=== PATIENT | male | born 1995 | race Caucasian/White ===

== ENCOUNTER 2018-08-05 09:00 | Emergency (ER) | payer SELFPAY ==
[2018-08-05 09:04] VITALS: BP 153/94; PULSE 85; RESP 16; TEMP 36.7; O2SAT 97
--- NOTE | 2018-08-05 09:41 | ED.GENADUL_ITS ---
Discharge Plan Disposition Patient Disposition: HOME Condition: Improving Discharge Details Chief Complaint: EyeProblem Clinical Impression: Nausea vomiting and diarrhea, Dehydration, Dizziness Primary Care Provider: None,None ED Provider: Marysol Stroud Home Meds and New Rx's Prescriptions: New prochlorperazine maleate [Compazine] 10 mg tablet 10 mg PO TID PRN (Reason: nausea and vomiting) Qty: 7 RF: 0 Continued omeprazole 20 mg Tablet,Delayed Release (Dr/Ec) PO DAILY RF: 0 Discharge Instructions Instructions: Acute Nausea and Vomiting (ED), Acute Diarrhea (ED), Dizziness (ED) Additional Instructions: Take the Compazine as needed and directed for any nausea or vomiting. Drink plenty of fluids and get plenty of rest. You will receive a call from care management regarding a follow-up appointment with a primary care doctor. Return immediately to the emergency department with any worsening or new concerning symptoms. Stand Alone Forms: Work Release Discharge Data Discharge Date/Time-TO BE ENTERED AT DEPARTURE: 08/05/18 13:49 Discharge Physician: Marysol Stroud Medical Decision Making 23-year-old male with no past medical history who presents with dizziness and vision changes this morning after awakening, more pronounced while driving this morning. Symptoms somewhat improved at present. Visual acuity on arrival OD 20/30, OS 20/20, OU 20/20. Vitals within normal limits. Upon my evaluation, patient is texting on phone and appears in no acute distress. He also states that for the past 3 months he has been coughing with yellow sputum and he is a smoker. He also states he drinks at least 2 alcoholic drinks and smokes marijuana daily and has been vomiting up to 6 times daily every day for the past week. Also admits to intermittent diarrhea. Discussed with patient that his differential diagnosis can include dehydration, gastroenteritis, electrolyte abnormality, cyclic vomiting syndrome, pneumonia. As he is young with no past medical history, do not suspect acute neurological process, but based on his symptom presentation, a CT head, screening labs, and chest x-ray ordered on arrival. Labs and imaging reviewed and unremarkable. Normal white blood cell count. Normal electrolytes. Normal liver function and lipase. Chest x-ray and CT head negative. 1320 --patient states he feels better and is requesting to go home. He is texting on his phone. He is requesting a work note for the next [address] head negative, will give a dose of Toradol. Patient thinks he was given Zofran by his PCP for this previous vomiting but it is not been helping. Will send home with a prescription for Compazine. Discussed with patient that his work-up is reassuring and since his symptoms are improved and he is hemodynamically stable, no fever or meningeal signs so doubt meningitis, does not appear consistent with an acute neurological process requiring an LP, but if his condition acutely worsens or changes, to return immediately to the emergency department. Nurse did not see order and hence did not give dose of toradol prior to dc. Pt had no acute complaints per nurse. Medical Records Medical records reviewed: Yes I reviewed the patient's medical records. Imaging Data Radiologic Study: Radiologist's impression: NONCONTRAST CRANIAL CT: A noncontrast cranial CT was performed. There is slight mucoperiosteal thickening of maxillary antra and opacification of a couple of ethmoid air cells on the left. Otherwise the paranasal sinuses and mastoid air cells are well aerated. Orbital structures and temporal bone structures appear intact. Ventricular system is normal in appearance. No evidence of acute intracranial hemorrhage, mass effect or midline shift. IMPRESSION: No evidence of acute process. Radiologic Study #2: Radiologist's impression: PA AND LATERAL CHEST: The heart is normal in size. The lungs are clear. The mediastinal structures and pleura appear intact. CONCLUSION: Normal chest. Lab Data Lab results reviewed: Yes I reviewed the patient's lab results. Laboratory Tests Range/Units 08/05/18 08/05/18 08/05/18 10:45 10:45 10:45 WBC (4.4-10.8) k/cumm 9.28 RBC (4.50-6.00) m/cumm 5.52 Hgb (13.5-17.5) g/dL 16.4 Hct (40.0-50.0) % 46.8 MCV (80-95) fL 84.8 MCH (27.0-33.0) pg 29.7 MCHC (32.0-36.0) g/dL 35.0 RDW (11.8-14.1) % 12.2 Plt Count (130-400) x1000/uL 276 MPV (8.0-11.0) fL 10.4 Immature Gran % 0.3 Neutrophils % 73.6 Lymphocytes % 15.5 Monocytes % 8.7 Eosinophils % 1.5 Basophils % 0.4 Absolute Neutrophils (1.2-6.7) k/cumm 6.82 H Absolute Lymphocytes (1.2-3.4) k/cumm 1.44 Absolute Monocytes (0.11-0.7) k/cumm 0.81 H Absolute Eosinophils (0.0-0.7) k/cumm 0.14 Absolute Basophils (0.0-0.2) k/cumm 0.04 Sodium (136-145) mmol/L 138 Potassium (3.5-5.1) mmol/L 3.9 Chloride (98-107) mmol/L 102 Carbon Dioxide (21.0-32.0) mmol/L 24.5 Anion Gap (3-11) mmol/L 11.5 H BUN (7-18) mg/dL 14 Creatinine (0.70-1.30) mg/dL 0.92 Estimated GFR/1.73 m2 (mL/min/1.73m2) >= 60.00 Glucose (70-100) mg/dL 104 H Calcium (8.5-10.1) mg/dL 9.3 Total Bilirubin (0.2-1.0) mg/dL 0.6 Conjugated Bilirubin (0.00-0.20) mg/dL 0.15 AST (15-37) U/L 29 ALT (12-78) U/L 45 Alkaline Phosphatase (46-116) U/L 81 Total Protein (6.4-8.2) g/dL 7.8 Albumin (3.4-5.0) g/dL 4.1 Lipase (73-393) U/L 97 ECG Data Attestation: I personally reviewed and interpreted this ECG (s) as follows: Interpretation: Rate of 67, sinus, no acute ST findings. QTc 424. QRS 110. HPI General Mode of arrival: ambulatory . Date/Time Provider Initiated Documentation: 08/05/18 09:11 . Limitations to Documentation: no limitations . Information obtained by: patient . HPI Narrative: Pt is a 23yo M who presents to the ED w/ a c/o dizziness, difficulty focusing, and vision changes since awaking this morning. Pt states he developed these symptoms first after awaking this morning at home but then they became more pronounced while he was driving. He states he felt like his vision seemed like a trail of objects and that the roads were cutting into each other. He then states that for the last few months he has had a cough with occasional sputum and has been vomiting up to 6 times daily for the last 2 weeks. He also admits to diarrhea multiple times recently and intermittent lower abdominal pain and bloating. He states he was seen in [place] [facility] this week for these GI symptoms and was given 2 prescriptions, one which he thinks was zofran but denies any relief with this. He denies any known fever, chest pain, shortness of breath, urinary symptoms, headache, or neck pain. He drinks at least 2 alcoholic drinks daily and smokes marijuana daily. Related Data Home Medications Medication Instructions Recorded Confirmed omeprazole mg PO DAILY 08/05/18 prochlorperazine maleate 10 mg PO TID PRN #7 tab 08/05/18 [Compazine] Previous Rx's Medication Instructions Recorded prochlorperazine maleate 10 mg PO TID PRN #7 tab 08/05/18 [Compazine] Allergies Allergy/AdvReac Type Severity Reaction Status Date / Time No Known Allergies Allergy Unverified 08/05/18 09:12 General Stated Complaint: EyeProblem JERONIMO: 3 Review of Systems Review of Systems All systems reviewed & are unremarkable except as noted in HPI and below Constitutional Reports as per HPI, Denies chills and Denies fever(s) Eyes Reports blurry vision ENT Reports dizziness, Denies sore throat and Denies throat swelling Cardiovascular Denies chest pain and Denies dyspnea Respiratory Denies cough and Denies dyspnea Gastrointestinal Denies abdominal pain, Reports diarrhea and Reports vomiting Genitourinary Denies hematuria and Denies dysuria Musculoskeletal Denies back pain and Denies numbness Integumentary/Breasts Denies lesions and Denies rash Neurologic Reports dizziness, Denies focal weakness and Denies numbness Allergic/Immunologic Denies throat swelling [facility] Medical History No significant past medical history (Acute) Surgical History No significant past surgical history (Acute) Social History Smoking/Tobacco Use Status: Current every day Tobacco Type: cigarettes Smoking cigarettes per day: 1 Drug use: Daily Substance use type: marijuana Do you feel safe at home: Yes Do you feel safe in your relationship?: Yes Exam Const General: cooperative, healthy appearing and no acute distress HENMT Head: normal to inspection Face and sinus: normal facial exam Eyes General: appearance normal, both eyes and all related structures Pupils: PERRL EOM: EOM intact bilaterally Neck Neck: normal visual inspection and No submandibular swelling Lymphatic: no lymphadenopathy noted Chest Chest: normal inspection of the chest and no tenderness Resp Effort & Inspection: normal respiratory effort and able to speak in complete sentences Auscultation: clear to auscultation bilaterally Cardio Rate: regular rate Rhythm: regular rhythm GI Inspection: normal to inspection Palpation: soft, not firm, not rigid and tender (minimally tender across lower abdomen) not in the RLQ, obturator sign negative, psoas sign negative, with no rebound tenderness and Rovsing's sign negative Auscultation: normal bowel sounds Male General Exam: Yes normal external exam Skin General skin exam: no rashes or lesions noted Neuro General: alert, awake and oriented x3 Cranial Nerves: CN's II-XI intact bilaterally Cognition: normal cognition Speech: speech normal Motor: muscle tone normal throughout and strength 5/5 throughout Sensory Exam: no sensory deficits noted Extrem General: normal to inspection, full ROM, normal capillary refill, no calf tenderness bilaterally and no edema Psych Appearance: grossly normal Mental Status: mental status grossly normal Speech and Movement: speech and movement normal Affect: normal affect Course Vital Signs Temperature 98.1 F 08/05/18 09:04 Pulse 85 08/05/18 09:04 Respiratory Rate 16 08/05/18 09:04 Blood Pressure 153/94 H 08/05/18 09:04 Pulse Oximetry 97 08/05/18 09:04 Temperature 98.1 F 08/05/18 09:04 Temperature Source Skin 08/05/18 09:04 Pulse 85 08/05/18 09:04 Respiratory Rate 16 08/05/18 09:04 Respiratory Effort 08/05/18 09:11 Blood Pressure 153/94 H 08/05/18 09:04 Blood Pressure Position Sitting 08/05/18 09:04 Pulse Oximetry 97 08/05/18 09:04 Oxygen Delivery Method Room Air 08/05/18 09:04 Oxygen Flow Rate 0 08/05/18 09:04 Pain Level 0 08/05/18 09:04
[2018-08-05] MEDS: Normal Saline 1,000 ML 1000 ML IV (10:45)
[2018-08-05 10:59] LABS: Abs Immature Grans 0.03 k/cumm (0.0-0.09); Absolute Basophil Count 0.04 k/cumm (0.0-0.2); Absolute Eosinophil Count 0.14 k/cumm (0.0-0.7); Absolute Lymphocyte Count 1.44 k/cumm (1.2-3.4); Absolute Monocyte Count 0.81 k/cumm (0.11-0.7); Absolute Neutrophil Count 6.82 k/cumm (1.2-6.7); Basophils % 0.4; Eosinophils % 1.5; HCT 46.8 % (40.0-50.0); HGB 16.4 g/dL (13.5-17.5); Immature Grans % 0.3; Lymphocytes % 15.5; Mean Corpuscular Hemoglobin 29.7 pg (27.0-33.0); Mean Corpuscular Volume 84.8 fL (80-95); Mean Platelet Volume 10.4 fL (8.0-11.0); Monocytes % 8.7; Neutrophils % 73.6; Platelet Count 276 x1000/uL (130-400); RBC 5.52 m/cumm (4.50-6.00); RBC Distribution Width 12.2 % (11.8-14.1); White Blood Cell Count 9.28 k/cumm (4.4-10.8)
[2018-08-05 11:05] LABS: Anion Gap 11.5 mmol/L (3-11); BUN 14 mg/dL (7-18); CO2 24.5 mmol/L (21.0-32.0); CREATININE 0.92 mg/dL (0.70-1.30); Calcium 9.3 mg/dL (8.5-10.1); Chloride 102 mmol/L (98-107); Glucose 104 mg/dL (70-100); Potassium 3.9 mmol/L (3.5-5.1); Sodium 138 mmol/L (136-145)
--- NOTE | 2018-08-05 11:13 | DI.RAD_ITS ---
SYMPTOM/DIAGNOSIS: COUGH, ? PNEUMONIA PA AND LATERAL CHEST: The heart is normal in size. The lungs are clear. The mediastinal structures and pleura appear intact. CONCLUSION: Normal chest.
--- NOTE | 2018-08-05 11:47 | DI.CT_ITS ---
SYMPTOM/DIAGNOSIS: CONFUSION, LACK OF COORDINATION NONCONTRAST CRANIAL CT: A noncontrast cranial CT was performed. There is slight mucoperiosteal thickening of maxillary antra and opacification of a couple of ethmoid air cells on the left. Otherwise the paranasal sinuses and mastoid air cells are well aerated. Orbital structures and temporal bone structures appear intact. Ventricular system is normal in appearance. No evidence of acute intracranial hemorrhage, mass effect or midline shift. IMPRESSION: No evidence of acute process.
[2018-08-05 12:01] LABS: ALT 45 U/L (12-78); AST 29 U/L (15-37); Albumin 4.1 g/dL (3.4-5.0); Alkaline Phosphatase 81 U/L (46-116); Bilirubin, Direct 0.15 mg/dL (0.00-0.20); Bilirubin, Total 0.6 mg/dL (0.2-1.0); Lipase 97 U/L (73-393); Total Protein 7.8 g/dL (6.4-8.2)
[2018-08-05 13:46] VITALS: BP 138/93; PULSE 85; RESP 16; TEMP 36.7; O2SAT 98
--- NOTE | 2018-08-06 08:19 | PDOC.ERCMPRO ---
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 Referral faxed to [facility] this am.
--- NOTE | 2018-08-06 08:20 | CMPROGNOTE_ITS ---
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 Referral faxed to [facility] this am.
== END 2018-08-05 13:49 | disposition home or self-care (01) ==
PROVIDERS: Emergency Provider Physician Assistant
DX: R11.2 Nausea with vomiting, unspecified (principal); R19.7 Diarrhea, unspecified; E86.0 Dehydration; R42 Dizziness and giddiness
CPT/HCPCS: 36415; 80048; 80076; 83690; 93005; 96360; 99285; 70450; 71046; 85025; 93010; 99284